=== PATIENT | female | born 1960 | race Caucasian/White ===

== ENCOUNTER 2017-10-26 19:21 | Emergency (ER) | payer OTHER ==
[~2017-10-26] VITALS: Ht 162.6 cm; Wt 70.5 kg
[~2017-10-26 19:21] MED LIST: NORepinephrine 1 mg/ml inj IV ONE; atropine 0.1mg/ml 10ml syringe ONE; calcium chloride 100 MG/1 ML inj IV ONE; epiNEPHrine 0.1mg/ml 10ml syringe ONE; flumazenil 0.1 mg/ml inj. IV ONE; naloxone 2mg/2ml inj ONE; sodium bicarbonate (8.4%) 1 mEq/ml syringe ONE
[2017-10-26] MEDS ORDERED: acetaminophen 325mg tablet PO PRN ×2 (19:45)
[2017-10-26] MEDS ORDERED: ondansetron/PF 4mg/2ml inj IV PRN (19:45)
[2017-10-26] MEDS ORDERED: morphine 4 MG/ML inj SYRINge IV PRN ×2 (19:45)
[2017-10-26] MEDS ORDERED: NORepinephrine 8mg/ 250ml NS 250 ML IV PRN (20:11)
[2017-10-26] MEDS ORDERED: FENTANYL-0.9 % NACL/PF 100 ML IV PRN (20:20)
[2017-10-26] MEDS ORDERED: midazolam 100mg in NS 100ml 100 ML IV PRN (20:20)
[2017-10-26 20:26] LABS: BASOPHILS % (AUTO) 0.4 % (0-1); EOSINOPHILS % (AUTO) 2.5 % (0-6); HEMOGLOBIN 7.5 g/dl (12.0-16.0); LYMPHOCYTES # (AUTO) 0.7 X10'3 (1.1-4.8); LYMPHOCYTES % (AUTO) 41.4 % (21-51); MEAN CORPUSCULAR HEMOGLOBIN 31.5 PG (27.0-31.0); MEAN CORPUSCULAR HGB CONC 34.3 % (33.0-36.5); MEAN CORPUSCULAR VOLUME 91.8 FL (78-98); MONOCYTES # (AUTO) 0.2 X10'3 (0-0.9); MONOCYTES % (AUTO) 11.2 % (2-12); NEUTROPHILS # (AUTO) 0.7 X10'3 (1.8-7.7); NEUTROPHILS % (AUTO) 44.5 % (42-75); RED BLOOD COUNT 2.37 X10'6 (4.20-5.60); RED CELL DISTRIBUTION WIDTH 13.6 % (11.5-14.5); WHITE BLOOD COUNT 1.6 X10'3 (4.5-11.0)
[2017-10-26] MEDS ORDERED: SODIUM BICARBONATE IV ONE (20:29)
[2017-10-26] MEDS ORDERED: SODIUM CHLORIDE 0.45% IV ONE (20:29)
[2017-10-26 20:31] LABS: ALANINE AMINOTRANSFERASE 160 U/L (12-78); ALBUMIN 1.4 G/DL (3.4-5.0); ALBUMIN/GLOBULIN RATIO 0.7 (1.1-1.5); ALKALINE PHOSPHATASE 20 IU/L (46-116); ANION GAP 27 (8-16); ASPARTATE AMINO TRANSFERASE 289 U/L (10-37); BILIRUBIN,TOTAL 0.4 MG/DL (0.1-1.0); BLOOD UREA NITROGEN 22 MG/DL (7-18); BUN/CREATININE RATIO 11.8 (6.6-38.0); CALCIUM 6.6 MG/DL (8.5-10.1); CHLORIDE 107 MMOL/L (99-107); CREATININE 1.86 MG/DL (0.40-0.90); GLUCOSE 120 MG/DL (70-104); LIPASE < 50 U/L (73-393); POTASSIUM 3.7 MMOL/L (3.5-5.1); SODIUM 148 MMOL/L (135-145); TOTAL PROTEIN 3.4 G/DL (6.4-8.2); eGFR 28 ML/MIN
[2017-10-26 20:34] LABS: MEAN PLATELET VOLUME 8.8 FL (7.4-10.4)
[2017-10-26 20:34] LABS: TOTAL CARBON DIOXIDE 13.7 MMOL/L (24-32)
[2017-10-26] MEDS ORDERED: sodium bicarbonate (8.4%) inj. 150 MEQ in dextrose 5%-water 1,000 ML IV ONE (20:35)
[2017-10-26 20:38] LABS: PLATELET COUNT 35 X10'3 (140-440)
[2017-10-26 20:39] LABS: HEMATOCRIT 21.8 % (35.0-45.0)
[2017-10-26] MEDS ORDERED: sodium bicarbonate (8.4%) 1 mEq/ml syringe IV ONE (20:40)
[2017-10-26 20:47] LABS: PLATELET COUNT 35 X10'3 (140-440)
[2017-10-26] MEDS ORDERED: calcium chloride 100 MG/1 ML inj IV ONE (20:50)
[2017-10-26 20:51] LABS: ABG BASE EXCESS -17.4 mmol/L (-2.0-3.0); ABG HCO3 16.9 mmol/L (22.0-26.0); ABG OXYGEN SATURATION 75.8 % (95-98); ABG PCO2 (T) 99.8 mmHg (32.0-45.0); ABG PH (T) 6.836 (7.350-7.450); ABG PO2 (T) 63.9 mmHg (83-108); FCOHb 0.1 % (0.5-1.5); FMetHb 0.3 % (0.3-1.12); FO2Hb 75.5 % (94-100); MINUTE VOLUME 9 L/min; PATIENT TEMPERATURE 35.8; PEEP 10 cm H2O; RESPIRATORY RATE 18 b/min; RESPIRATORY RATE (OBSERVED) 18 b/min; TIDAL VOLUME 400 mL; TOTAL HEMOGLOBIN 9.2 G/dl (12.0-16.0)
[2017-10-26 20:53] LABS: INR 1.8 INR; PROTHROMBIN TIME 18.7 SECONDS (9.0-12.0)
[2017-10-26 20:55] LABS: LACTIC SEPSIS 18.5 MMOL/L (0.4-2.0)
[2017-10-26] MEDS ORDERED: normal saline 1000ML IV soln IVB ONE (20:55)
[2017-10-26 21:11] LABS: PARTIAL THROMBOPLASTIN TIME > 153 SECONDS (22-32)
[2017-10-26] MEDS ORDERED: iohexol 350MG/ML 100ml bottle IV ONE (21:11)
[2017-10-26 21:18] VITALS: BP 79/53
[2017-10-26 21:22] LABS: NUCLEATED RED BLOOD CELLS 1 /100WBC (0-0); TOTAL CELLS COUNTED 100
[2017-10-26 21:23] LABS: LARGE PLATELETS FEW; PLATELET ESTIMATE DECREASED
[2017-10-26 21:24] LABS: ANISOCYTOSIS FEW; POLYCHROMASIA FEW
[2017-10-26] MEDS ORDERED: [UNRECOGNIZED DRUG - OTHER] IV PRN ×2 (21:30)
[2017-10-26 21:55] LABS: D-DIMER > 35.20 MG/L FEU (0-0.50)
== END 2017-10-26 23:00 | disposition expired ==
LOC: ER 19:22
DX: I46.9 Cardiac arrest, cause unspecified (principal)
CPT/HCPCS: 31500; 36415; 36556; 36600; 71045; 80053; 82140; 82803; 82948; 83605; 83690; 83735; 83880; 84100; 84145; 84443; 85018; 85025; 85379; 85384; 85610; 85730; 86885; 86900; 86901; 87040; 87070; 87077; 87186; 92950; 93005; 94640; 94760; 96365; 96367; 96375; 99291; 99292; C1751; C1758; J0171; J0461; J2310; J3490; J7030; 94002; A6213; Q9967